=== PATIENT | male | born 1955 | race Caucasian/White ===

== ENCOUNTER 2019-07-03 07:01 | Outpatient (CLI) | payer OTHER ==
--- NOTE | 2019-07-03 09:09 | MRI ---
MR the lumbar spine without contrast INDICATION: M62.830 MUSCLE SPASM OF BACK . PT STATES HE FELL 2018 AND HAS BEEN HAVING L OWER BACK PAIN EVER SINCE. PT STATES NO SURGERY AND NO PREVIOUS MRI OF THE LUMBAR. PT HAD LUMBAR XRAYS AT [facility]. PT HAD A WICK XRAY DONE HERE TODAY FOR BRAIN HARDWARE AND METAL IN EYES FOR M RI CLEARANCE, SAFE PER DR PETIT AND DR HANSEN FOR MRI. MBG-TECH, TGM-NOTES. COMPARISON: None. TECHNIQUE: Multiplanar multisequence MR images were obtained of lumbar spine without IV contrast. FINDINGS: Bone marrow: There is a prominent bony hemangioma involving T12. There is a burst type compression fr acture involving L1 with greater than 75% loss of height involving the anterior and central aspect of the L1 vertebral body. There is retropulsion of bone fragments within the spinal canal from the po sterior superior margin of L1 causing moderate central canal narrowing and mild ventral effacement of the conus. Distal spinal cord and conus: Mild effacement of the distal spinal cord and conus from retropulsed alfred ne fragments from the L1 burst fracture. The conus seen to terminate at L1. Visualized retroperitoneum and paraspinal soft tissues: There is a 3.6 cm septated cystic abnormality involving the superior pole of the right kidney. There is a 3.3 cm cystic abnormality involving the inferior pole of the left kidney. The cystic abnormalities of increased in size from a comparison CT the abdomen and pelvis from January 13, 2004 performed at [facility] Vertebral levels: L5-S1: There is a broad-based disc osteophyte complex and facet degenerative change inducing moderate bilateral neural foraminal narrowing. There is also mild lateral recess encroachment due to the disc osteophyte complex and facet hypertrophy.. L4-5: There is a broad-based disc bulge with facet hypertrophy and loss of disc space height inducing mild to moderate right neural foraminal narrowing. L3-4: There is a broad-based disc bulge with facet hypertrophy causing mild neural foraminal encroach ment. L2-3: There is a broad-based disc bulge with facet hypertrophy inducing mild bilateral neural foramin al encroachment, left greater than right. L1-L2: There is a broad-based disc bulge in addition to retropulsed bone fragments inducing moderate left neural foraminal narrowing T12-L1: Moderate central canal narrowing due to retropulsed bone fragments from L1 with moderate left neural foraminal narrowing. IMPRESSION: 1. Prominent burst type compression abnormality of L1 with retropulsed bone fragments at T12-L1 induc ing moderate central canal narrowing with mild ventral effacement of the distal spinal conus. No definite conus signal abnormality is evident. Retroposed bone fragments are also inducing moderate le ft neural foraminal narrowing at T12-L1 and L1-L2. 2. Moderate to severe spondylosis of the lumbar spine with multilevel neural foraminal narrowing as d etailed above.
--- NOTE | 2019-07-03 09:27 | RAD ---
SKULL TWO VIEWS: 07/03/2019 PROVIDED CLINICAL HISTORY: MRI clearance. History of welding. FINDINGS: Postoperative changes of mesh cranioplasty are demonstrated. There is no evidence for a metallic fore ign body in the region of the orbits. Per conversation with Dr. Yi the cranioplasty change is safe f or MRI. IMPRESSION: As above. POS: OFF
== END 2019-07-03 07:02 | disposition home or self-care (01) ==
LOC: BICMRI 07:01
PROVIDERS: ATTEND Family Medicine
DX: S39.012D Strain of muscle, fascia and tendon of lower back, subsequent encounter (principal); M62.830 Muscle spasm of back; M47.816 Spondylosis without myelopathy or radiculopathy, lumbar region; M48.061 Spinal stenosis, lumbar region without neurogenic claudication; Z98.890 Other specified postprocedural states
CPT/HCPCS: 70210; 70250; 72148

== ENCOUNTER 2019-09-05 15:32 | Outpatient (CLI) | payer OTHER ==
--- NOTE | 2019-09-05 15:45 | RAD ---
Lumbar spine 2 views HISTORY: Low back pain. Fracture. COMPARISON: MRI 07/03/2019. FINDINGS: Burst fracture with near complete loss of height at the L1 level is again demonstrated. Mil d retropulsion of the upper half of the vertebral body is similar in appearance to the prior study. T12 vertebral body height is maintained. Minimal degenerative retrolisthesis at the L3-4 level. Multilevel osteophytosis. Gas disc phenomenon at the lumbosacral junction. On the frontal view., Metallic hardware from bracing material obscures detail. IMPRESSION: Allowing for differences in technique, there is stable radiographic appearance of the L1 burst fracture and other findings.
== END 2019-09-05 15:33 | disposition home or self-care (01) ==
LOC: TBSIIMAG 15:32
PROVIDERS: ATTEND Neurological Surgery
DX: S22.008D Other fracture of unspecified thoracic vertebra, subsequent encounter for fracture with routine healing (principal)
CPT/HCPCS: 72100

== ENCOUNTER 2019-10-19 10:13 | Outpatient (CLI) | payer OTHER ==
--- NOTE | 2019-10-19 11:57 | RAD ---
2 views of the lumbar spine: 10/19/2019 COMPARISON: 09/05/2019 HISTORY: History of work injury, compression fracture FINDINGS: There is mild multilevel lower lumbar spine facet hypertrophy. There is disc space narrowin g with disc desiccation, degenerative endplate change, anterior osteophyte formation, and vacuum disc formation at L5-S1. At L2-3 and L3-4 there is mild disc space narrowing and anterior osteophyte formation. There is a burst fracture at L1 with severe loss of vertebral body height anteriorly. There is at storm[address] st 80% loss of vertebral body height anteriorly, stable when compared to the 09/05/2019 examination. No new fracture is evident. IMPRESSION: Burst fracture with severe loss of vertebral body height at the L1 level, unchanged when compared to the prior exam. Stable lumbar spine degenerative change.
== END 2019-10-19 10:14 | disposition home or self-care (01) ==
LOC: TBSIIMAG 10:13
PROVIDERS: ATTEND Neurological Surgery
DX: S32.011A Stable burst fracture of first lumbar vertebra, initial encounter for closed fracture (principal); M47.816 Spondylosis without myelopathy or radiculopathy, lumbar region; R29.890 Loss of height
CPT/HCPCS: 72100

== ENCOUNTER 2019-11-23 09:48 | Outpatient (CLI) | payer OTHER ==
--- NOTE | 2019-11-23 11:37 | RAD ---
TWO VIEWS OF THE LUMBAR SPINE: COMPARISON: None. HISTORY: Thoracolumbar fracture. FINDINGS: Two views of the lumbosacral spine show stable wedge compression deformity of the L1 vertebral body w ith approximately 90% anterior height loss. The vertebral bodies demonstrate normal alignment withou t subluxation. Kyphotic curvature is seen surrounding the fracture. Degenerative changes are seen t hroughout the lumbar spine, greatest at L5-S1. IMPRESSION: Stable L1 compression fractures. POS: [facility]
== END 2019-11-23 09:49 | disposition home or self-care (01) ==
LOC: BICRAD 09:48
PROVIDERS: ATTEND Neurological Surgery
DX: S32.019A Unspecified fracture of first lumbar vertebra, initial encounter for closed fracture (principal); S22.009A Unspecified fracture of unspecified thoracic vertebra, initial encounter for closed fracture
CPT/HCPCS: 72100